=== PATIENT | male | born 1945 | race Caucasian/White ===

== ENCOUNTER 2019-04-05 13:21 | Inpatient (IN) | payer MEDICARE ==
[2019-04-05] MEDS ORDERED: Zolpidem Tartrate 5 MG TAB PO PRN (14:35)
[2019-04-05] MEDS ORDERED: Ondansetron ODT 4 MG TAB PO PRN (14:35)
--- NOTE | 2019-04-05 15:30 | HP ---
[facility] Call admission. Transferred from [facility]. HISTORY OF PRESENT ILLNESS: The patient awoke this morning with slurred speech, pale, freezing hard, shaking, chills. His grandson who was with him asked him if he needed to stay with him, he said no, he went off to work. He then came over, found him unresponsive on the porch. He was taken to [facility]. He was hypotensive with blood pressure in 82 systolic range. He said he felt drunk and unsteady. PAST MEDICAL HISTORY: Pertinent for deep vein thrombosis 15+ years ago, right leg and right arm at different times; hypertension; dyslipidemia. CURRENT MEDICATIONS: 1. Plavix 75 mg a day for the deep vein thrombosis. 2. Tribenzor 20/5/12.5 once a day for hypertension. 3. Atorvastatin 10 mg a day. 4. Protonix 40 mg a day. 5. Aspirin 81 mg. ALLERGIES: NO KNOWN DRUG ALLERGIES. PAST SURGICAL HISTORY: Pertinent for robotic prostate cancer surgery, total knee replacement on the left. He has an artificial urethral sphincter, and he has had lumbar spine surgery x3. FAMILY HISTORY: Mother of old age. Father of old age. Two sisters of old age. One brother of coronary artery disease. SOCIAL HISTORY: . DNAR. at bedside with son, both of them disagree with this, but he apparently has a living will. I have told them to discuss it among themselves and him and tell me if there is a change. He smokes cigars. Drinks very occasional alcohol. REVIEW OF SYSTEMS: GENERAL: No documented fever, but he did have chills without sweats, felt drunk, ataxic. He had no fainting that he is aware of. EYES: No double vision, blurred vision, flashing light. EARS, NOSE, AND THROAT: No ear pain or drainage. No nasal bleeding. No trouble swallowing. CARDIAC: No chest pain, orthopnea, or paroxysmal nocturnal dyspnea. RESPIRATIONS: No cough, wheezing, or asthma. GASTROINTESTINAL: No nausea, vomiting, diarrhea, or constipation. GENITOURINARY: He pushes button to urinate. He has had no pain. No blood on urination. MUSCULOSKELETAL: He states his right calf swells every day. NEUROLOGICAL: No strokes, seizures, or focal weakness. SKIN: No bruises, bleeding, or rash. EXTREMITIES: No cyanosis or clubbing. No edema on the left. He has 1+ edema on the right. SKIN: Warm and dry without bruises or rash. HEME AND LYMPH: No tender or swollen lymph nodes in axilla, inguinal, or cervical area. NEUROLOGICAL: Cranial nerves 2 through 12 are intact. Deep tendon reflexes are symmetric. IMAGING STUDIES: EKG, regular sinus rhythm with nonspecific ST abnormality, reviewed by me. Chest x-ray, no cardiomegaly, CHF, or infiltrate reviewed by me. LABORATORY DATA: Done in [facility], white count 7.5 with an absolute neutrophilia, hemoglobin 13.7, and platelet count 189,000. Comprehensive metabolic profile; sodium 138, potassium 3.2, CO2 of 22, BUN 17, creatinine 0.75, glucose 123. Liver function tests normal. Lactic acid 1.9. Urine had a positive nitrite and a negative leukocyte esterase and a 0 to 3 white cell count, which is normal. He did, however, have 3+ bacteria. ADMITTING DIAGNOSES: Fever to 103, altered mental status, hypotension, history of hypertension, and dyslipidemia. PLAN: Blood and urine cultures were obtained. The patient has been started on Rocephin 2 g IV q.12 hours. Repeat CBC, basic metabolic profile in the morning. Selected home medicines. It is quite possible despite the fact that he has no back pain that this is a pyelonephritis. He will require at least 2 overnights. For urine and blood cultures and sensitivities, he will be given IV fluids. Job ID: [id number] MTDD
[2019-04-05 15:58] VITALS: BMI 28.8
[2019-04-05] MEDS: Sodium Chloride 0.9% 1,000 ML IV SCH ×2 (16:05→20:29)
--- NOTE | 2019-04-05 16:26 | PDOC.EVN ---
Event Note - Event Note Event Note: D-dimer high, hx DVT- stat lovenox, cta for PE
[2019-04-05] MEDS ORDERED: Enoxaparin Sodium 100 MG/ML SYRINGE SC SCH (16:30)
--- NOTE | 2019-04-05 17:04 | CT ---
EXAM: CTA of the chest HISTORY: Shortness of breath; elevated d-dimer COMPARISON: None TECHNIQUE: Multiple contiguous axial images were obtained a CTA of the chest with contrast per pulmon matt embolism protocol. 3-D oblique MIP reformats and direct coronal reformats were performed. FINDINGS: HEART: Normal in size without focal cardiac abnormality. Atherosclerotic calcifications in the grady ry arteries and aorta. PULMONARY ARTERIES: Normal in caliber without filling defects to suggest pulmonary emboli. MEDIASTINUM: No hilar or mediastinal lymphadenopathy. LUNGS: No focal infiltrates or masses. Atelectasis is seen in the lung bases. PLEURAL SPACE: No pleural effusion or pneumothorax. CHEST WALL SOFT TISSUES: Unremarkable VISUALIZED OSSEOUS STRUCTURES: Degenerative changes in the spine. VISUALIZED SUBDIAPHRAGMATIC STRUCTURES: Unremarkable IMPRESSION: No evidence of pulmonary thromboembolism
--- NOTE | 2019-04-05 18:40 | PDOC.EVN ---
Event Note - Event Note Event Note: CTA neg for PE, cont current orders
[2019-04-05] MEDS: Acetaminophen 325 MG TAB PO PRN (20:28)
[2019-04-06] MEDS: Acetaminophen 325 MG TAB PO PRN ×3 (01:15→21:40)
[2019-04-06 06:01] LABS: Anion Gap 9 mmol/L (10-20); BUN (Urea Nitrogen) 16 mg/dL (8.4-25.7); Calc. Creatinine Clearance 101 mL/min (70-130); Calcium 7.6 mg/dL (7.8-10.44); Carbon Dioxide 21 mmol/L (23-31); Chloride 110 mmol/L (98-107); Estimated GFR-MDRD 89; Glucose 99 mg/dL (83-110); Potassium 3.3 mmol/L (3.5-5.1); Sodium 137 mmol/L (136-145)
[2019-04-06 06:23] LABS: Band 13 % (5-11); Hemoglobin 11.2 g/dL (14.0-18.0); Hypochromia SLIGHT = 6-15 cells (100X) (0-5/hpf); MDiff Complete? YES; Mean Corpuscular HGB CONC 33.2 g/dL (32.0-36.0); Mean Corpuscular Hemoglobin 29.8 pg (27.0-31.0); Mean Corpuscular Volume 89.7 fL (78.0-98.0); Mean Platelet Volume 6.2 fL (7.4-10.4); Neutrophil 87 % (42-75); Platelet Count 141 thou/uL (130-400); Platelet Morphology Comment Appears Adequate; RBC Distribution Width 12.6 % (11.5-14.5); Red Blood Cell (RBC) Count 3.77 mill/uL (4.70-6.10); White Blood Cell (WBC) Count 16.6 thou/uL (4.8-10.8)
[2019-04-06 08:15] LABS: ALT (SGPT) 14 U/L (8-55); AST (SGOT) 19 U/L (5-34); Alkaline Phosphatase 41 U/L (40-150); Bilirubin, Direct 0.2 mg/dL (0.1-0.3); Bilirubin, Total 0.5 mg/dL (0.2-1.2); Magnesium 1.4 mg/dL (1.6-2.6); Protein, Total 4.8 g/dL (5.8-8.1)
[2019-04-06] MEDS ORDERED: Magnesium Sulfate 3 GM in Sodium Chloride 0.9% 100 ML IVPB SCH (08:30)
[2019-04-06] MEDS ORDERED: Amlodipine 5 MG TAB PO SCH (09:00)
[2019-04-06] MEDS ORDERED: Hydrochlorothiazide 25 MG TAB PO SCH (09:00)
[2019-04-06] MEDS: Sodium Chloride 0.9% 1,000 ML IV SCH ×3 (09:14→19:47)
[2019-04-06] MEDS: Enoxaparin Sodium 40 MG/0.4 ML SYRINGE SC SCH (09:17)
[2019-04-06] MEDS: Clopidogrel Bisulfate 75 MG TAB PO SCH (09:17)
[2019-04-06] MEDS: Atorvastatin Calcium 10 MG TAB PO SCH (09:17)
[2019-04-06] MEDS: Aspirin Chewable 81 MG TAB PO SCH (09:17)
--- NOTE | 2019-04-06 12:48 | PDOC.PN ---
- Subjective Encounter Start Date: 04/06/19 Encounter Start Time: 09:00 -: old records requested/rev Patient seen and examined. No new complaints. No overnight events - Objective Resuscitation Status - Order Detail: 04/05/19 16:18 Resuscitation Status Routine Resuscitation Status: FULL: Full Resuscitation MAR Reviewed: Yes Vital Signs & Weight: Vital Signs (12 hours) Temp Pulse Resp BP Pulse Ox 04/06/19 12:00 98.2 F 65 18 124/67 95 04/06/19 08:00 98.2 F 63 20 111/67 95 04/06/19 04:00 98.6 F 70 18 113/77 96 04/06/19 01:20 99.4 F Weight Weight 200 lb 9 oz I&O: 04/05/19 04/06/19 04/07/19 06:59 06:59 06:59 Intake Total 620 240 Output Total 220 Balance 400 240 Result Diagrams: 04/06/19 05:25 04/06/19 05:25 Radiology Reviewed by me: Yes Phys Exam - Physical Examination Constitutional: NAD HEENT: PERRLA, moist MMs, sclera anicteric Neck: no JVD, supple Respiratory: no wheezing, no rales, no rhonchi Cardiovascular: RRR, no significant murmur, no rub Gastrointestinal: soft, non-tender, no distention, positive bowel sounds Musculoskeletal: no edema, pulses present Neurological: non-focal, normal sensation, moves all 4 limbs Lymphatic: no nodes Psychiatric: normal affect, A&O x 3 Skin: no rash, normal turgor Dx/Plan (1) Sepsis Code(s): A41.9 - SEPSIS, UNSPECIFIED ORGANISM Status: Acute (2) Hypokalemia Code(s): E87.6 - HYPOKALEMIA Status: Acute (3) Hypomagnesemia Code(s): E83.42 - HYPOMAGNESEMIA Status: Acute (4) GERD (gastroesophageal reflux disease) Code(s): K21.9 - GASTRO-ESOPHAGEAL REFLUX DISEASE WITHOUT ESOPHAGITIS Status: Chronic (5) Hypertension Code(s): I10 - ESSENTIAL (PRIMARY) HYPERTENSION Status: Chronic - Plan cont current plan of care, plan discussed w/ family, continue antibiotics * continue rocephin * replace potassium and magnesium * discussed with * follow culture * viral fever suspecting. Review of Systems - Review of Systems Constitutional: fever. negative: chills, sweats, weakness, malaise, other ENT: negative: Ear Pain, Ear Discharge, Nose Pain, Nose Discharge, Nose Congestion, Mouth Pain, Mouth Swelling, Throat Pain, Throat Swelling, Other Respiratory: negative: Cough, Dry, Shortness of Breath, Hemoptysis, SOB with Excertion, Pleuritic Pain, Sputum, Wheezing Cardiovascular: negative: chest pain, palpitations, orthopnea, paroxysmal nocturnal dyspnea, edema, light headedness, other Gastrointestinal: negative: Nausea, Vomiting, Abdominal Pain, Diarrhea, Constipation, Melena, Hematochezia, Other Genitourinary: negative: Dysuria, Frequency, Incontinence, Hematuria, Retention , Other Musculoskeletal: negative: Neck Pain, Shoulder Pain, Arm Pain, Back Pain, Hand Pain, Leg Pain, Foot Pain, Other Skin: negative: Rash, Lesions, Kb, Bruising, Other - Medications/Allergies Allergies/Adverse Reactions: Allergies Allergy/AdvReac Type Severity Reaction Status Date / Time No Known Drug Allergies Allergy Verified 04/05/19 15:14 Medications: Current Medications Acetaminophen (Tylenol) 650 mg PO Q4H PRN PRN Reason: Headache/Fever/Mild Pain (1-3) Last Admin: 04/06/19 01:15 Dose: 650 mg Aspirin (Aspirin Chewable) 81 mg PO DAILY [facility] Last Admin: 04/06/19 09:17 Dose: 81 mg Atorvastatin Calcium (Lipitor) 10 mg PO DAILY [facility] Last Admin: 04/06/19 09:17 Dose: 10 mg Clopidogrel Bisulfate (Plavix) 75 mg PO DAILY [facility] Last Admin: 04/06/19 09:17 Dose: 75 mg Enoxaparin Sodium (Lovenox) 40 mg SC 0900 [facility] Last Admin: 04/06/19 09:17 Dose: 40 mg Ceftriaxone Sodium 2 gm/ (Sodium Chloride) 100 mls @ 200 mls/hr IVPB 1200 [facility] Sodium Chloride (Normal Saline 0.9%) 1,000 mls @ 125 mls/hr IV .Q8H [facility] Last Admin: 04/06/19 09:14 Dose: 1,000 mls Ondansetron HCl (Zofran Odt) 4 mg PO Q6H PRN PRN Reason: Nausea/Vomiting Pantoprazole Sodium (Protonix) 40 mg PO DAILY [facility] Last Admin: 04/06/19 09:17 Dose: 40 mg Zolpidem Tartrate (Ambien) 5 mg PO HSPRN PRN PRN Reason: Insomnia
[2019-04-06] MEDS ORDERED: Chloraseptic Spray 180 ml Bottle PO PRN (13:47)
[2019-04-06] MEDS ORDERED: Cepastat Lozenges 1 LOZ PO PRN (13:47)
[2019-04-06] MEDS: cefTRIAXone\\ROCEPHIN 2 GM in Sodium Chloride 0.9% 100 ML IVPB SCH (14:13)
[2019-04-06] MEDS ORDERED: [UNRECOGNIZED DRUG - OTHER] PO SCH (21:00)
[2019-04-07] MEDS: Sodium Chloride 0.9% 1,000 ML IV SCH ×2 (03:30→15:39)
[2019-04-07] MEDS: Clopidogrel Bisulfate 75 MG TAB PO SCH (08:38)
[2019-04-07] MEDS: Enoxaparin Sodium 40 MG/0.4 ML SYRINGE SC SCH (08:38)
[2019-04-07] MEDS: Atorvastatin Calcium 10 MG TAB PO SCH (08:38)
[2019-04-07] MEDS: Aspirin Chewable 81 MG TAB PO SCH (08:38)
--- NOTE | 2019-04-07 11:33 | PDOC.PN ---
- Subjective Encounter Start Date: 04/07/19 Encounter Start Time: 09:15 -: old records requested/rev Patient seen and examined. No new complaints. No overnight events - Objective Resuscitation Status - Order Detail: 04/05/19 16:18 Resuscitation Status Routine Resuscitation Status: FULL: Full Resuscitation MAR Reviewed: Yes Vital Signs & Weight: Vital Signs (12 hours) Temp Pulse Resp BP BP Pulse Ox 04/07/19 07:50 98.2 F 67 16 151/83 H 95 04/07/19 04:00 98.0 F 67 16 121/67 96 Weight Weight 200 lb 9 oz I&O: 04/06/19 04/07/19 04/08/19 06:59 06:59 06:59 Intake Total 620 2700 Output Total 220 Balance 400 2700 Result Diagrams: 04/06/19 05:25 04/06/19 05:25 Phys Exam - Physical Examination Constitutional: NAD HEENT: PERRLA, moist MMs, sclera anicteric Neck: no JVD, supple Respiratory: no wheezing, no rales, no rhonchi Cardiovascular: RRR, no significant murmur, no rub Gastrointestinal: soft, non-tender, no distention, positive bowel sounds Musculoskeletal: no edema, pulses present Neurological: non-focal, normal sensation, moves all 4 limbs Lymphatic: no nodes Psychiatric: normal affect, A&O x 3 Skin: no rash, normal turgor Dx/Plan (1) Sepsis Code(s): A41.9 - SEPSIS, UNSPECIFIED ORGANISM Status: Acute (2) Hypokalemia Code(s): E87.6 - HYPOKALEMIA Status: Acute (3) Hypomagnesemia Code(s): E83.42 - HYPOMAGNESEMIA Status: Acute (4) GERD (gastroesophageal reflux disease) Code(s): K21.9 - GASTRO-ESOPHAGEAL REFLUX DISEASE WITHOUT ESOPHAGITIS Status: Chronic (5) Hypertension Code(s): I10 - ESSENTIAL (PRIMARY) HYPERTENSION Status: Chronic - Plan cont current plan of care, plan discussed w/ family, continue antibiotics * PT WAnts to go home * if no fever today, will dc on omnicef per pt request * medication reviewed as below * symptomatic treatment. Review of Systems - Review of Systems Constitutional: negative: fever, chills, sweats, weakness, malaise, other ENT: negative: Ear Pain, Ear Discharge, Nose Pain, Nose Discharge, Nose Congestion, Mouth Pain, Mouth Swelling, Throat Pain, Throat Swelling, Other Respiratory: negative: Cough, Dry, Shortness of Breath, Hemoptysis, SOB with Excertion, Pleuritic Pain, Sputum, Wheezing Cardiovascular: negative: chest pain, palpitations, orthopnea, paroxysmal nocturnal dyspnea, edema, light headedness, other Gastrointestinal: negative: Nausea, Vomiting, Abdominal Pain, Diarrhea, Constipation, Melena, Hematochezia, Other Genitourinary: negative: Dysuria, Frequency, Incontinence, Hematuria, Retention , Other Musculoskeletal: negative: Neck Pain, Shoulder Pain, Arm Pain, Back Pain, Hand Pain, Leg Pain, Foot Pain, Other Skin: negative: Rash, Lesions, Kb, Bruising, Other - Medications/Allergies Allergies/Adverse Reactions: Allergies Allergy/AdvReac Type Severity Reaction Status Date / Time No Known Drug Allergies Allergy Verified 04/05/19 15:14 Medications: Current Medications Acetaminophen (Tylenol) 650 mg PO Q4H PRN PRN Reason: Headache/Fever/Mild Pain (1-3) Last Admin: 04/06/19 21:40 Dose: 650 mg Aspirin (Aspirin Chewable) 81 mg PO DAILY [facility] Last Admin: 04/07/19 08:38 Dose: 81 mg Atorvastatin Calcium (Lipitor) 10 mg PO DAILY [facility] Last Admin: 04/07/19 08:38 Dose: 10 mg Clopidogrel Bisulfate (Plavix) 75 mg PO DAILY [facility] Last Admin: 04/07/19 08:38 Dose: 75 mg Enoxaparin Sodium (Lovenox) 40 mg SC 0900 [facility] Last Admin: 04/07/19 08:38 Dose: 40 mg Ceftriaxone Sodium 2 gm/ (Sodium Chloride) 100 mls @ 200 mls/hr IVPB 1200 [facility] Last Admin: 04/06/19 14:13 Dose: 100 mls Sodium Chloride (Normal Saline 0.9%) 1,000 mls @ 125 mls/hr IV .Q8H [facility] Last Admin: 04/07/19 03:30 Dose: 1,000 mls Ondansetron HCl (Zofran Odt) 4 mg PO Q6H PRN PRN Reason: Nausea/Vomiting Pantoprazole Sodium (Protonix) 40 mg PO DAILY [facility] Last Admin: 04/07/19 08:38 Dose: 40 mg Patient's Home Medication (Olmsrtn- Amldpn-Hctz 20-5-12. 5) 0 each PO HS [facility] Last Admin: 04/06/19 21:35 Dose: 1 each Phenol (Chloraseptic [place] 180 Ml Bot) 180 ml PO BIDPRN PRN PRN Reason: Sore Throat Throat Lozenges (Cepastat Lozenges) 1 lb PO Q2H PRN PRN Reason: Sore Throat Zolpidem Tartrate (Ambien) 5 mg PO HSPRN PRN PRN Reason: Insomnia
[2019-04-07] MEDS: cefTRIAXone\\ROCEPHIN 2 GM in Sodium Chloride 0.9% 100 ML IVPB SCH (11:55)
--- NOTE | 2019-04-07 12:24 | DIS ---
DATE OF ADMISSION: 04/05/2019 DATE OF DISCHARGE: 04/07/2019 PRIMARY CARE PHYSICIAN: [facility] Call admission. DISCHARGE DISPOSITION: Home. PRIMARY DISCHARGE DIAGNOSES: 1. Sepsis criteria, resolved. 2. Hypokalemia, corrected. 3. Hypomagnesemia, corrected. SECONDARY DISCHARGE DIAGNOSES: 1. Hypertension. 2. Gastroesophageal reflux disease. 3. Dyslipidemia. PRIMARY PROCEDURE AND OPERATION: None. RADIOLOGICAL INVESTIGATION: CT angiography normal. SIGNIFICANT LABORATORY DATA: WBC hemoglobin 11.2, platelet 141. D-dimer 1.93. Sodium 137, potassium 3.3, BUN 16, creatinine 0.85, magnesium 1.4. LFT normal. DISCHARGE MEDICATIONS: Omnicef 300 mg p.o. b.i.d. for 5 more days. The patient will continue following medication: 1. Aspirin 81 mg p.o. daily. 2. Lipitor 10 mg p.o. daily. 3. Plavix 75 mg p.o. daily. 4. Olmesartan/amlodipine/hydrochlorothiazide half tablet daily. 5. Protonix 40 mg daily. CONTRAINDICATION: None. CODE STATUS: Full code. INPATIENT SUPPORT DIRECTOR: None. ALLERGIES: NO KNOWN DRUG ALLERGIES. DISCHARGE PLAN: Posthospital, the patient will follow up with primary care physician. HOSPITAL COURSE: This is a 73-year-old male, who was admitted by Dr. Preciado. Please see his H and P for further details. The patient was having sepsis criteria. He was having fever and relative hypotension and he has leukocytosis. He also had abnormal electrolytes with hypokalemia and hypomagnesemia. He had elevated D-dimer and that is why CT angio was done, which was negative for PE. All cultures remained negative. The patient remained afebrile while in hospital. He is clinically doing much better. I am suspecting viral fever, but for benefit of doubt, the patient was treated with Rocephin while in hospital and he will continue Omnicef for 5 more days. The patient wants to go home because he is feeling much better, and if he remains afebrile for 24 hours, then we will consider discharging him home later on today. The patient is seen and examined at bedside today. Please see my progress note from today for further detail. Job ID: [id number]
[2019-04-07 13:00] LABS: Hemoglobin 11.6 g/dL (14.0-18.0); Mean Corpuscular HGB CONC 33.6 g/dL (32.0-36.0); Mean Corpuscular Hemoglobin 30.2 pg (27.0-31.0); Mean Corpuscular Volume 89.6 fL (78.0-98.0); Mean Platelet Volume 6.4 fL (7.4-10.4); Platelet Count 136 thou/uL (130-400); RBC Distribution Width 12.6 % (11.5-14.5); Red Blood Cell (RBC) Count 3.85 mill/uL (4.70-6.10); White Blood Cell (WBC) Count 14.5 thou/uL (4.8-10.8)
[2019-04-07 13:21] LABS: ALT (SGPT) 13 U/L (8-55); AST (SGOT) 16 U/L (5-34); Alkaline Phosphatase 58 U/L (40-150); Anion Gap 10 mmol/L (10-20); BUN (Urea Nitrogen) 12 mg/dL (8.4-25.7); Bilirubin, Total 0.4 mg/dL (0.2-1.2); Calc. Creatinine Clearance 110 mL/min (70-130); Calcium 7.9 mg/dL (7.8-10.44); Carbon Dioxide 22 mmol/L (23-31); Chloride 109 mmol/L (98-107); Estimated GFR-MDRD Greater than 90; Globulin 2.3 g/dL (2.4-3.5); Glucose 97 mg/dL (83-110); Potassium 3.5 mmol/L (3.5-5.1); Protein, Total 5.3 g/dL (5.8-8.1); Sodium 137 mmol/L (136-145)
[2019-04-07 13:23] LABS: Band 17 % (5-11); Eosinophils 4 % (0-10); Lymphocytes 7 % (21-51); MDiff Complete? YES; Neutrophil 71 % (42-75); Platelet Morphology Comment Appears Adequate; RBC Morphology Normal
[2019-04-07 15:40] VITALS: BP 165/81; TEMP 99.2
[2019-04-07] MEDS: Acetaminophen 325 MG TAB PO PRN (15:52)
== END 2019-04-07 15:57 | disposition home or self-care (01) | DRG 872 ==
LOC: ERS 13:21 → T4-A 15:20
PROVIDERS: ADMIT Internal Medicine; ATTEND Internal Medicine
DX: A41.9 Sepsis, unspecified organism (principal); I10 Essential (primary) hypertension; E78.5 Hyperlipidemia, unspecified; E87.6 Hypokalemia; E83.42 Hypomagnesemia; K21.9 Gastro-esophageal reflux disease without esophagitis; B34.9 Viral infection, unspecified; F17.290 Nicotine dependence, other tobacco product, uncomplicated; Z96.652 Presence of left artificial knee joint; Z85.46 Personal history of malignant neoplasm of prostate; Z86.718 Personal history of other venous thrombosis and embolism
CPT/HCPCS: 36415; 71275; 80048; 80053; 80076; 83735; 85025; 85379; 87086; 99284; J0696; J1650; J3475; J3490

== ENCOUNTER 2019-09-21 14:19 | Emergency (ER) | payer MEDICARE ==
--- NOTE | 2019-09-21 14:58 | RAD ---
PORTABLE CHEST: HISTORY: Fever. FINDINGS: Streaky infiltrate in the right mid lung extending from the right infrahilar region. Left lung appea rs clear. Vascular markings normal. Heart size is normal. IMPRESSION: Evidence of subtle infiltrate in the right lower lung extending from the infrahilar region. POS: OFF
[2019-09-21] MEDS ORDERED: Acetaminophen 500 MG TAB ONE (15:15)
[2019-09-21 15:16] LABS: #Basophils 0.1 thou/uL (0.0-0.2); #Lymphocytes 0.5 thou/uL (1.20-3.40); #Monocytes 0.7 thou/uL (0.11-0.59); #Neutrophils 12.2 thou/uL (1.40-6.50); %Basophils 0.7 % (0.0-1.0); %Eosinophils 0.3 % (0.0-10.0); %Lymphocytes 3.9 % (21.0-51.0); %Neutrophils 90.3 % (42.0-75.0); Hemoglobin 14.6 g/dL (14.0-18.0); Mean Corpuscular HGB CONC 33.9 g/dL (32.0-36.0); Mean Corpuscular Volume 88.7 fL (78.0-98.0); Mean Platelet Volume 5.9 fL (7.4-10.4); Platelet Count 203 thou/uL (130-400); RBC Distribution Width 12.4 % (11.5-14.5); Red Blood Cell (RBC) Count 4.87 mill/uL (4.70-6.10); White Blood Cell (WBC) Count 13.5 thou/uL (4.8-10.8)
[2019-09-21 15:31] LABS: ALT (SGPT) 14 U/L (8-55); AST (SGOT) 21 U/L (5-34); Albumin 4.2 g/dL (3.4-4.8); Alkaline Phosphatase 67 U/L (40-110); Anion Gap 13 mmol/L (10-20); BUN (Urea Nitrogen) 15 mg/dL (8.4-25.7); Calc. Creatinine Clearance 0 mL/min (70-130); Calcium 9.2 mg/dL (7.8-10.44); Carbon Dioxide 23 mmol/L (23-31); Chloride 105 mmol/L (98-107); Estimated GFR-MDRD 81; Globulin 2.7 g/dL (2.4-3.5); Glucose 116 mg/dL (83-110); Potassium 3.5 mmol/L (3.5-5.1); Protein, Total 6.9 g/dL (5.8-8.1); Sodium 137 mmol/L (136-145)
[2019-09-21 16:13] LABS: Base Excess-Venous -1.2 mmol/L (-2.0 to 3.0); Bicarbonate (HCO3v) 22.4 mmol/L (22.0-28.0); CO2 Tension (PvCO2) 33.6 mmHg (40.0-50.0); Calcium, Ionized 1.11 mmol/L (See Comments:); Chloride 102 mmol/L (98-107); Hemoglobin - Calc 13.6 g/dL (14.0-18.0); Potassium 3.1 mmol/L (3.5-5.1); Sodium 137 mmol/L (138-145); T. Carbon Dioxide 23.5 mmol/L (22.0-28.0); vO2 Saturation-calc 90.2 % (60.0-85.0)
[2019-09-21] MEDS ORDERED: cefTRIAXone\\ROCEPHIN 2 GM VIAL ONE (16:13)
[2019-09-21 16:42] LABS: Bacteria/HPF None Seen HPF (None Seen); Bilirubin Negative (Negative); Blood, Urine 1+ (Negative); Clarity Clear (Clear); Glucose, Urine (Dipstick) Normal (Negative); Leukocyte Negative Leu/uL (Negative); Nitrite Negative (Negative); Protein, Urine (Dipstick) 10 mg/dL (Neg-Trace); Squamous Epithelial 0-3 HPF (0-3); Urobilinogen Normal mg/dL (Less than 2); WBC/HPF 0-3 HPF (0-3)
[2019-09-21] MEDS ORDERED: Azithromycin 500 MG VIAL ONE (17:11)
== END 2019-09-21 18:30 | disposition home or self-care (01) ==
LOC: ERS 14:19
DX: J18.9 Pneumonia, unspecified organism (principal); E78.00 Pure hypercholesterolemia, unspecified; I10 Essential (primary) hypertension; F17.210 Nicotine dependence, cigarettes, uncomplicated; Z79.82 Long term (current) use of aspirin; Z79.899 Other long term (current) drug therapy
CPT/HCPCS: 36415; 71045; 80053; 81003; 81015; 82330; 82803; 83605; 85025; 87040; 87077; 87086; 87149; 87186; 87804; 96361; 96365; 96367; J0456; J0696

== ENCOUNTER 2021-04-04 03:07 | Emergency (ER) | payer MEDICARE ==
[2021-04-04 04:29] LABS: Hemoglobin 12.7 g/dL (14.0-18.0); Mean Corpuscular HGB CONC 33.5 g/dL (32.0-36.0); Mean Corpuscular Hemoglobin 29.6 pg (27.0-31.0); Mean Corpuscular Volume 88.2 fL (78.0-98.0); Mean Platelet Volume 5.9 fL (7.4-10.4); Platelet Count 190 thou/uL (130-400); RBC Distribution Width 12.5 % (11.5-14.5)
[2021-04-04 04:44] LABS: ALT (SGPT) 10 U/L (8-55); AST (SGOT) 14 U/L (5-34); Albumin 3.6 g/dL (3.4-4.8); Alkaline Phosphatase 53 U/L (40-110); Anion Gap 11 mmol/L (10-20); BUN (Urea Nitrogen) 15 mg/dL (8.4-25.7); Bilirubin, Total 1.1 mg/dL (0.2-1.2); CK (CPK) 77 U/L (30-200); Calc. Creatinine Clearance 0 mL/min (70-130); Calcium 8.6 mg/dL (7.8-10.44); Carbon Dioxide 25 mmol/L (23-31); Chloride 102 mmol/L (98-107); Globulin 2.5 g/dL (2.4-3.5); Glucose 126 mg/dL (83-110); Potassium 3.3 mmol/L (3.5-5.1); Protein, Total 6.1 g/dL (5.8-8.1); Sodium 135 mmol/L (136-145)
[2021-04-04 04:49] LABS: Band 6 % (5-11); Lymphocytes 4 % (21-51); MDiff Complete? YES; Monocytes 6 % (0-10); Neutrophil 84 % (42-75); Platelet Morphology Comment Appears Adequate
[2021-04-04 06:36] LABS: Bilirubin Negative (Negative); Blood, Urine Small (Negative); Glucose, Urine (Dipstick) Negative (Negative); Ketone, Urine Negative (Negative); Leukocyte Negative (Negative); Nitrite Negative (Negative); Protein, Urine (Dipstick) Negative (Neg-Trace); Urobilinogen 0.2 mg/dL (Less than 2)
[2021-04-04 06:50] LABS: Clarity Clear (Clear)
== END 2021-04-04 07:13 | disposition home or self-care (01) ==
LOC: ERS 03:07
DX: T67.5XXA Heat exhaustion, unspecified, initial encounter (principal); R53.1 Weakness; R50.9 Fever, unspecified; E78.00 Pure hypercholesterolemia, unspecified; I10 Essential (primary) hypertension; F17.220 Nicotine dependence, chewing tobacco, uncomplicated; Z85.46 Personal history of malignant neoplasm of prostate; Z79.82 Long term (current) use of aspirin; Z79.899 Other long term (current) drug therapy
CPT/HCPCS: 36415; 80053; 81003; 81015; 82550; 84484; 85025; 93005

== ENCOUNTER 2021-04-06 13:06 | Emergency (ER) | payer MEDICARE ==
[2021-04-06 14:18] LABS: #Eosinphils 0.2 thou/uL (0.0-0.7); #Lymphocytes 1.4 thou/uL (1.20-3.40); #Monocytes 0.7 thou/uL (0.11-0.59); #Neutrophils 4.6 thou/uL (1.40-6.50); %Basophils 0.7 % (0.0-1.0); %Eosinophils 2.4 % (0.0-10.0); %Lymphocytes 19.7 % (21.0-51.0); %Monocytes 10.1 % (0.0-10.0); %Neutrophils 67.2 % (42.0-75.0); Hemoglobin 13.5 g/dL (14.0-18.0); Mean Corpuscular HGB CONC 32.7 g/dL (32.0-36.0); Mean Corpuscular Hemoglobin 29.1 pg (27.0-31.0); Mean Corpuscular Volume 88.7 fL (78.0-98.0); Mean Platelet Volume 5.9 fL (7.4-10.4); Platelet Count 201 thou/uL (130-400); RBC Distribution Width 12.6 % (11.5-14.5); Red Blood Cell (RBC) Count 4.65 mill/uL (4.70-6.10); White Blood Cell (WBC) Count 6.9 thou/uL (4.8-10.8)
[2021-04-06 14:51] LABS: ALT (SGPT) 26 U/L (8-55); AST (SGOT) 27 U/L (5-34); Albumin 3.8 g/dL (3.4-4.8); Alkaline Phosphatase 68 U/L (40-110); Anion Gap 15 mmol/L (10-20); BUN (Urea Nitrogen) 12 mg/dL (8.4-25.7); Bilirubin, Total 0.8 mg/dL (0.2-1.2); Calc. Creatinine Clearance 0 mL/min (70-130); Calcium 9.2 mg/dL (7.8-10.44); Carbon Dioxide 26 mmol/L (23-31); Chloride 103 mmol/L (98-107); Globulin 3.1 g/dL (2.4-3.5); Glucose 129 mg/dL (83-110); Potassium 3.7 mmol/L (3.5-5.1); Protein, Total 6.9 g/dL (5.8-8.1); Sodium 140 mmol/L (136-145)
== END 2021-04-06 17:41 | disposition home or self-care (01) ==
LOC: ERS 13:06
DX: I82.431 Acute embolism and thrombosis of right popliteal vein (principal); E78.00 Pure hypercholesterolemia, unspecified; I10 Essential (primary) hypertension; F17.220 Nicotine dependence, chewing tobacco, uncomplicated; Z79.82 Long term (current) use of aspirin; Z85.46 Personal history of malignant neoplasm of prostate; Z79.899 Other long term (current) drug therapy
CPT/HCPCS: 36415; 80053; 85025

== ENCOUNTER 2024-04-20 13:32 | Outpatient (CLI) | payer MEDICARE | END 2024-04-20 13:33 | disposition home or self-care (01) | LOC: SCSMRI 13:32 | PROVIDERS: ATTEND Family Medicine | DX: S32.049A Unspecified fracture of fourth lumbar vertebra, initial encounter for closed fracture (principal); I71.43 Infrarenal abdominal aortic aneurysm, without rupture; M47.816 Spondylosis without myelopathy or radiculopathy, lumbar region; M48.061 Spinal stenosis, lumbar region without neurogenic claudication; M51.36 Other intervertebral disc degeneration, lumbar region; M51.37 Other intervertebral disc degeneration, lumbosacral region; M48.07 Spinal stenosis, lumbosacral region | CPT/HCPCS: 72148 ==